=== PATIENT | male | born 1930 | race Caucasian/White ===

== ENCOUNTER → 2016-06-16 | Outpatient (CLI) | payer OTHER ==
--- NOTE | 2016-06-16 12:13 | DX ---
PA and lateral chest x-ray 1053 hours. History: Wheezing with Shortness of breath especially during exertion for the last 3 to 4 weeks. (R 0 62) Findings: Comparison to August 17, 2010. Heart size remains mildly enlarged. Pulmonary vasculature is mildly prominent centrally similar to th e prior study. 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 There is stable subsegmental atelecta sis left lung base involving the lingula. There is some prominence of the pericardial fat pad on the left. There is no new consolidation, effusion, or evidence of pneumothorax. No pulmonary nodules are seen. Osseous structures are unchanged. Impression: 1. No active cardio pulmonary disease seen. 2. Stable mild cardiomegaly with subsegmental atelectasis left base.
== END ==
LOC: FIMAGING 10:52
PROVIDERS: ATTEND Nurse Practitioner Family
DX: I51.7 Cardiomegaly (principal); R06.2 Wheezing

== ENCOUNTER → 2017-03-07 | Outpatient (CLI) | payer OTHER | LOC: FIMAGING 12:43 | PROVIDERS: ATTEND Family Medicine Sports Medicine | DX: M19.071 Primary osteoarthritis, right ankle and foot (principal); M25.571 Pain in right ankle and joints of right foot ==